=== PATIENT | female | born 1985 | race Caucasian/White ===

== ENCOUNTER 2025-05-03 07:10 | Emergency (ER) | payer SELFPAY ==
[2025-05-03] VITALS (13 sets, daily range): BP systolic 159–202; BP diastolic 109–137; PULSE 91–100; RESP 16–19; TEMP 36.6–36.9; O2SAT 97–99; BMI 24.1
--- NOTE | 2025-05-03 07:30 | ED_ITS ---
Discharge Plan Disposition Patient Disposition: Home, Self-Care Prescriptions Prescriptions: New amlodipine 5 mg tablet 5 mg PO DAILY Qty: 30 0RF nitrofurantoin macrocrystal 100 mg capsule 100 mg PO BID 5 Days Qty: 10 0RF Rx Instructions: must administer with a meal/food Referrals Follow up/Referrals: Provider,Referral, [Primary Care Provider, Medical] - See instructions Activity Restrictions/Add. Instructions Additional Instructions/Restrictions: Your blood pressure continues to remain elevated I am prescribing medication called amlodipine for you to take daily to help with this. You also were found to have a mild urinary tract infection and are being prescribed a course of antibiotics. Take this as prescribed until all antibiotics are gone. I am given you a list of primary care doctors to follow-up with given your elevated blood pressures. I encourage you to call one of them to schedule an appointment. If you develop any new or worsening symptoms, such as chest pain, blurry vision, abdominal pain, bloody urine, shortness of breath, confusion, seizures, or if you become concerned for your help for any reason, return to the emergency department for evaluation Clinical Impressions Clinical Impression: Hypertension, Urinary tract infection Print Language Print Language: Ukrainian Discharge ED Provider: Cb Duff General Adult HPI General Chief complaint: Weakness Stated complaint: lower back pain headache fatigue Time Seen by Provider: 05/03/25 07:20 Mode of Arrival: Ambulatory Source of Information: Patient Limitations: No Limitations History of Present Illness HPI narrative: Dianne Kruse is a 39y female with a past medical history of HTN and hemophilia who presents to the emergency department for complaints of elevated blood pressure, fatigue. Patient states that she has had elevated blood pressure over the last few years there is treated with the medication but ran out a month ago. She states that this was prescribed by her software developer intern in [place]. She does not remember what medication is. She states that her blood pressure normally runs in the 140s systolic. They checked her blood pressure this morning and it was in the 180s. She also reports fatigue. She states that she is currently on her period and has crampy abdominal pain but denies any dysuria. She does report some mild lower back pain associated with this. She denies any chest pain or shortness of breath. She denies any fevers, cough. She reports that there have been a few people with colds around her recently. She states that every now and then she will have blurry vision but denies any currently. She does report a mild headache. Related Data Previous Rx's ?Medication ?Instructions ?Recorded amlodipine 5 mg tablet 5 mg PO DAILY #30 tabs 05/03 nitrofurantoin macrocrystal 100 mg 100 mg PO BID 5 day s #10 caps 05/03/25 capsule Allergies Allergy/AdvReac Type Severity Reaction Status Date / Time No Known Allergies Allergy Verified 05/03/25 07:21 [facility] Disclaimer: The information contained in this section may have been updated after the patient was seen, as this information can be updated by other users. Social History Smoking Status: Never smoker alcohol intake: never current occupational status: other Travel in the last 8 weeks?: None ROS Obtained: Yes Systems reviewed as appropriate & no additional complaints except as documented Physical Exam General General appearance: alert and in no apparent distress Head Head exam: atraumatic Eye Eye exam: Present normal appearance ENT ENT exam: Present normal external ear exam Neck Neck exam: Present full ROM Chest Chest inspection: Present symmetric chest wall rise Respiratory Respiratory exam: Present normal lung sounds bilaterally; Absent respiratory distress, wheezes or stridor Cardiovascular Cardiovascular exam: Present regular rate and normal rhythm Abdominal Exam Abdominal exam: Present soft; Absent tenderness or guarding Extremities Exam Extremities exam: Present normal inspection Back Exam Back exam: Present normal inspection Neurological Exam Neurological exam: Present alert and oriented X3 Psychiatric Psychiatric exam: Present normal affect Skin Skin exam: Present warm and dry Medical Decision Making Medical Records Screening: Per USPSTF and CDC recommendations, given the prevalence of disease in our region, it is our hospital?s policy to screen for HIV and viral Hepatitis for all patients aged 18 and over and those with ongoing risk factors. Juma Inquiry Pt receiving controlled substance: No Vital Signs: 05/03/25 07:16 05/03/25 07:17 05/03/25 07:23 Temperature 98.4 F Temperature Source Oral Pulse Rate 100 H 99 H Pulse Rate [Left Radial] 98 H Respiratory Rate 19 Blood Pressure 202/137 H 191/131 H Blood Pressure [Right Arm] 202/137 H Blood Pressure Mean Blood Pressure Mean [Right Arm] 158 02 Sat by Pulse Oximetry 98 98 98 Oxygen Delivery Method Room Air 05/03/25 07:30 05/03/25 07:48 05/03/25 07:58 Temperature Temperature Source Pulse Rate 98 H 96 H Pulse Rate [Left Radial] Respiratory Rate Blood Pressure 168/118 H 176/124 H Blood Pressure [Right Arm] Blood Pressure Mean 145 Blood Pressure Mean [Right Arm] 02 Sat by Pulse Oximetry 98 99 Oxygen Delivery Method 05/03/25 08:00 05/03/25 08:26 05/03/25 08:30 Temperature Temperature Source Pulse Rate 95 H 92 H Pulse Rate [Left Radial] Respiratory Rate Blood Pressure 173/124 H 186/124 H 170/119 H Blood Pressure [Right Arm] Blood Pressure Mean 140 Blood Pressure Mean [Right Arm] 02 Sat by Pulse Oximetry 97 97 Oxygen Delivery Method 05/03/25 09:00 05/03/25 09:30 05/03/25 10:00 Temperature Temperature Source Pulse Rate 91 H 93 H Pulse Rate [Left Radial] Respiratory Rate Blood Pressure 168/117 H 159/112 H 162/118 H Blood Pressure [Right Arm] Blood Pressure Mean 130 Blood Pressure Mean [Right Arm] 02 Sat by Pulse Oximetry 98 97 Oxygen Delivery Method Room Air Room Air Lab Data Lab Results 05/03/25 07:34: SARS-CoV-2 (PCR) Not detected, Influenza A Untype (PCR) Not detected, Influenza Type B (PCR) Not detected 05/03/25 07:38: WBC 5.4, RBC 4.25, Hgb 13.0, Hct 37.5, MCV 88.2, MCH 30.6, MCHC 34.7, RDW 12.3, Plt Count 201, MPV 8.6, Neut % (Auto) 66.9, Lymph % (Auto) 24.0, Knott % (Auto) 7.2, Eos % (Auto) 1.3, Baso % (Auto) 0.4, Neut # (Auto) 3.6, Lymph # (Auto) 1.3, Knott # (Auto) 0.4, Eos # (Auto) 0.1, Baso # (Auto) 0.0, Sodium 138, Potassium 4.1, Chloride 105, Carbon Dioxide 22, Anion Gap 15.1 H, BUN 10, Creatinine 0.60, Estimated Creat Clear 132, Estimated GFR 112, Est GFR ( Amer) 135, Glucose 100, Calcium 8.3 L, Total Bilirubin 0.4, AST 85 H, ALT 34, Alkaline Phosphatase 58, Troponin I < 0.01, Total Protein 7.5, Albumin 4.6, Globulin 2.9, Albumin/Globulin Ratio 1.6, Lipase 64, TSH 1.39, Free T4 0.93, Serum HCG, Qual Negative, HCV Ab AFSANEH w/Rflx PCR Qn Negative, HIV Ag/Ab Combo Qual Negative 05/03/25 08:45: Urine Color Red, Urine Appearance Sl cloudy, Urine pH 8.0, Ur Specific [place] 1.020, Urine Protein 2+ A, Urine Glucose (UA) Negative, Urine Ketones Negative, Urine Blood 3+ A, Urine Nitrate Positive A, Urine Bilirubin Negative, Urine Urobilinogen 0.2, Ur Leukocyte Esterase Trace, Urine RBC Tntc, Urine WBC 3-5, Ur Squamous Epith Cells None, Urine Bacteria 2+ 05/03/25 07:38 05/03/25 07:38 Orders (Tests/Meds): ED MEDICATIONS Discontinued Medications Generic Name Dose Route Start Last Admin Trade Name Freq PRN Reason Stop Dose Admin Acetaminophen 1,000 mg 05/03/25 07:34 05/03/25 07:57 Acetaminophen 500mg Tab PO 05/03/25 07:35 1,000 mg ONCE ONE Administration Amlodipine Besylate 5 mg 05/03/25 07:30 05/03/25 07:56 Amlodipine 5mg Tablet PO 05/03/25 07:31 5 mg ONCE ONE Administration ORDERS Category Date Time Status CBC w/Auto Diff [Complete Blood Count Auto Diff] Stat Lab 05/03/25 07:38 Completed CMP [Comprehensive Metabolic Panel] Stat Lab 05/03/25 07:38 Completed Free T4 (Free Thyroxine) Stat Lab 05/03/25 07:38 Completed HIV Combo Routine Lab 05/03/25 07:38 Completed Hepatitis C Ab Qual. W/ RFX Routine Lab 05/03/25 07:38 Completed Lipase Stat Lab 05/03/25 07:38 Completed Rapid PCR Covid and Flu A/B Stat Lab 05/03/25 07:34 Completed Serum [HCG Qualitative, Serum] Stat Lab 05/03/25 07:38 Completed TSH [Thyroid Stimulating Hormone] Stat Lab 05/03/25 07:38 Completed Troponin I Q3H Lab 05/03/25 10:30 Ordered Troponin I Q3H Lab 05/03/25 13:30 Ordered Troponin I Stat Lab 05/03/25 07:38 Completed UA [Urinalysis and Microscopic] Stat Lab 05/03/25 08:45 Completed Urine Culture Stat Micro 05/03/25 08:45 Received ECG Data Tracing #1: I reviewed this ECG and interpreted as documented below: Normal sinus rhythm. No ST elevation or depression. No inverted T waves. QTc normal at 416 Medical Decision Narrative: Dianne Kruse is a 39y female with a past medical history of HTN and hemophilia who presents to the emergency department for complaints of elevated blood pressure, fatigue. Patient states that she has had elevated blood pressure over the last few years there is treated with the medication but ran out a month ago. She states that this was prescribed by her software developer intern in [place]. She does not remember what medication is. She states that her blood pressure normally runs in the 140s systolic. They checked her blood pressure this morning and it was in the 180s. She also reports fatigue. She states that she is currently on her period and has crampy abdominal pain but denies any dysuria. She does report some mild lower back pain associated with this. She denies any chest pain or shortness of breath. She denies any fevers, cough. She reports that there have been a few people with colds around her recently. She states that every now and then she will have blurry vision but denies any currently. She does report a mild headache. On arrival, patient is hypertensive with initial blood pressure 202/137. Heart rate within normal limits. Maintaining appropriate oxygen saturation on room air. Physical exam, stated above, revealed an overall well-appearing female in no distress. Abdomen is soft, nontender nondistended. She has no CVA tenderness bilaterally. Cardiopulmonary exam without murmur or rub. No significant peripheral edema. Differential diagnosis includes, but is not limited to: Uncontrolled hypertension, hypertensive emergency, acute pancreatitis, viral illness, among others. The most morbid conditions were considered and workup was based on these. Obtain hematologic labs, EKG, urine studies and administer 5 mg of oral amlodipine. Patient's labs are reassuring with normal limit cell count, no anemia, electrolytes within normal limits. No AMEENA. Very mildly elevated anion gap of 15.1. AST mildly elevated at 85 but liver enzymes and bilirubin otherwise within normal limits. Troponin less than 0.01. Negative test. Thyroid studies within normal limits. Negative COVID and flu testing. Urinalysis shows 2+ urine protein, 3+ blood with too numerous to count red blood cells, positive nitrate, leukocyte esterase trace, 2+ bacteria. Patient's hematuria is likely secondary to her being on her period. Given it is nitrate positive with bacteria and few white blood cell counts, could be component of urinary tract affection as well. On reassessment, patient systolic blood pressure had improved to 162, diastolic blood pressure does remain elevated as well. She is not having any symptoms consistent with hypertensive emergency or signs of end organ damage on her workup today. I do feel that she is appropriate for discharge at this time. Will prescribe a course of 5 mg amlodipine daily as well as Macrobid for her urinary tract infection. Will give a list of primary care doctors to follow-up with. Patient was given strict return precautions. All questions were answered. She demonstrated understanding and was in agreement with this plan. She was then discharged from the emergency department in stable condition. Critical Care Critical Care Time Critical Care Time: No
[2025-05-03 07:39] LABS: Coronavirus 19, PCR Not Detected (NotDetected); Influenza A, PCR Not Detected (NotDetected); Influenza B, PCR Not Detected (NotDetected)
--- NOTE | 2025-05-03 07:51 | ECG_ITS ---
APPROVED REPORT Exam: Resting ECG HR:94 bpm ECG Measurements Heart Rate 94 AXES MO 197 P -32 QRSd 96 QRS 84 QT 365 T 35 QTc 416 Conclusion SINUS RHYTHM INCOMPLETE RIGHT BUNDLE BRANCH BLOCK [90+ ms QRS DURATION, TERMINAL R IN V1/V2, 40+ ms S IN I/aVL/V4/V5/V6] BORDERLINE ECG UNCONFIRMED REPORT Normal sinus rhythm. No STEMI Electronically signed by : VALERIA ALVARADO, 05/03/2025 15:57:16
[2025-05-03] MEDS: AMLODIPINE 5MG TABLET 5 MG PO (07:56)
[2025-05-03] MEDS: ACETAMINOPHEN 500MG TAB 1000 MG PO (07:57)
--- OUTSIDE RECORDS SUMMARY | 2025-05-03 08:08 | XMS_ITS | Clinical Summary ---
Author Organization Healthcare Address 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 30 tablet 5 02/07/2025 Active hydroCHLOROthiaz cornelio (HYDRODiuril) 25 MG tabletIndication s:Hypertension, unspecified type Take 0.5 tablets by mouth daily. 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); Hypertension, unspecified type Discharge Disposition: Home or Self Care 02/07/2025 Telephone [facility] Pediatric Hemophilia [address]; [address] [phone] Lindsay Haskins APRN, DNP 02/07/2025 Travel 02/02/2025 Telephone [facility] Pediatric Hemophilia [address]; [address] [phone] Lindsay Haskins APRN, DNP from Last 3 Months Social History Tobacco Use Types Packs/Day Years Used Date Smoking Tobacco: Never Passive Smoke Exposure: Never Smokeless Tobacco: Never Tobacco Cessation:Counseling Given: Not Answered Comments Unknown Sex and Gender Information Value Date Recorded Sex Assigned at Not on file Legal Sex Female 4:09 PM EDT Gender Identity Not on file Sexual Orientation Not on file Last Filed Vital Signs Vital Sign Reading Time Taken Comments Blood Pressure 176/116 02/07/2025 11:30 AM EDT [employer] aware Pulse 105 02/07/2025 11:06 AM EDT Temperature 36.8 C (98.2 F) 02/07/2025 11:06 AM EDT Respiratory Rate - - Oxygen Saturation - - Inhaled Oxygen Concentration - - Weight 71.1 kg (156 lb 12 oz) 11:06 AM EDT Height 160 cm (5' 2.99 ) 02/07/2025 11: 06 AM EDT Body Mass Index 27.77 02/07/2025 11:06 AM EDT Plan of Treatment Health Maintenance Due Date Last Done Comments [facility]-Depression Screening 1986 [facility]-HIV Screening 1986 [facility]-Hepatitis C Screening 1986 [facility]-/Child/Adol SDOH Screenings 1986 [facility]-Obesity Intervention 1992 [facility]-Varicella Vaccines (1 of 2 - 13+ 2-dose series) 12/06/1999 [facility]- SDOH Screenings 2004 [facility]-Adult SDOH Screenings 2004 [facility]-DTaP,Tdap,and Td Vaccine s (1 - Tdap) 2005 [facility]-Hepatitis B Vaccines (1 of 3 - 19+ 3-dose series) 2005 [facility]-Pap Smear 12/06/2007 [facility]-Cervical Cancer Screening 2016 [facility]-HPV/Cotest 2016 [id number] Vaccine ( - 20 25-26 season) 2025 [facility]-Influenza Vaccine (#1) 2025 [facility]-Zoster Vaccines (1 of 2) 2036 HPV Vaccines (No Doses Required) Completed [facility]-HIB Vaccines Aged Out No longer e ligible based on patient's age to complete this topic [facility]-Hepatitis A Vaccines Aged Out No longer eligible based on patient's age to complete this topic [facility]-IPV Vaccines Aged Out No longer e ligible based on patient's age to complete this topic [facility]-Pneumococcal Vaccine: Pediatrics (0 to 5 Years) and At-Risk Patients (6 to 49 Years) Aged Out No long er eligible based on patient's age to complete this topic [facility]-Rotavirus Vaccines Aged Out No lo nger eligible based on patient's age to complete this topic Care Teams Gate Mortiser Operator Relationship Specialty Start Date End Date Pcp, No [address] [place] [address] PCP - General Family Medicine 01/05/24
--- NOTE | 2025-05-03 08:22 | PC.NURSE ---
I rounded on the pt and ambulated with her to the bathroom. no new complaints. no needs voiced. call howard in reach in the bathroom.
[2025-05-03 08:26] LABS: Hematocrit 37.5 % (37.0-47.0); Hemoglobin 13.0 g/dL (12.2-16.2); Immature Granulocytes % 0.2 %; Mean Corpuscular HGB Conc 34.7 g/dL (31.8-35.4); Mean Corpuscular Hemoglobin 30.6 pg (27.0-31.2); Mean Corpuscular Volume 88.2 fl (81-99); Nucleated Red Blood Cells % 0 %; Platelet Count 201 K/mm3 (142-424); Red Blood Count 4.25 M/mm3 (4.20-5.40); Red Cell Distribution Width-SD 39.9 fL; White Blood Count 5.4 K/mm3 (4.8-10.8)
[2025-05-03 08:34] LABS: Albumin Level 4.6 g/dl (3.5-5.0); Chloride 105 mmol/L (98-107)
[2025-05-03 08:35] LABS: Potassium 4.1 mmoL/L (3.5-5.1); Sodium 138 mmol/L (136-145)
[2025-05-03 08:37] LABS: Alanine Aminotransferase 34 U/L (12-78); Aspartate Amino Transferase 85 U/L (14-36); Blood Urea Nitrogen 10 mg/dl (7-17); Creatinine Clearance Estimated 132 mL/min (50-200); Creatinine,Serum 0.60 mg/dl (0.52-1.04); Estimated Glomerular Filt Rate 112 ml/min (>60); GFR (African American) 135 ML/MIN (>60)
[2025-05-03 08:38] LABS: Albumin/Globulin Ratio 1.6 (1.1-1.8); Alkaline Phosphatase 58 U/L (38-126); Anion Gap 15.1 mEq/L (5-15); Bilirubin,Total 0.4 mg/dl (0.2-1.3); Calcium 8.3 mg/dl (8.4-10.2); Carbon Dioxide 22 mmol/L (22.0-30.0); Globulin 2.9 g/dL (1.3-3.2); Glucose 100 mg/dl (74-100); Lipase 64 U/L (23-300); Total Protein,Serum 7.5 g/dl (6.3-8.2)
[2025-05-03 08:49] LABS: Microscopic, Urine URINE MICROSCOPIC (MICROSCOPIC)
[2025-05-03 08:57] LABS: HCG Qualitative, Serum Negative (Negative)
[2025-05-03 09:00] LABS: Troponin I < 0.01 ng/ml (0.00-0.034)
[2025-05-03 09:09] LABS: Thyroid Stimulating Hormone 1.39 uIU/mL (0.465-4.68)
[2025-05-03 09:16] LABS: Free T4 (Free Thyroxine) 0.93 ng/dl (0.78-2.19)
[2025-05-03 09:38] LABS: Bilirubin,Urine Negative (Negative); Color,Urine RED (Yellow); Glucose,Urine (UA) Negative (Negative); Ketones,Urine Negative (Negative); Leukocyte Esterase,Urine TRACE (Negative); PH,Urine 8.0 (5.0-8.5); Protein,Urine 2+ (Negative); Specific Gravity, Urine 1.020 (1.005-1.030); Urobilinogen,Urine 0.2 EU/dl (0.2)
[2025-05-03 09:40] LABS: RBC,Urine TNTC #/hpf (0-3)
[2025-05-03 09:41] LABS: Bacteria,Urine 2+ /lpf
[2025-05-03 09:49] LABS: Hepatitis C Ab Qual. W/ RFX NEGATIVE (Negative)
== END 2025-05-03 10:49 | disposition home or self-care (01) ==
PROVIDERS: Emergency Provider Student in an Organized Health Care Education/Training Program
DX: N39.0 Urinary tract infection, site not specified (principal); R51.9 Headache, unspecified; M54.59 Other low back pain; I10 Essential (primary) hypertension; R53.83 Other fatigue
CPT/HCPCS: 80053; 81001; 83690; 84439; 84443; 84484; 84703; 85025; 86803; 87086; 87389; 87636; 93005; 99284; 99285